=== PATIENT | female | born 1940 | race Caucasian/White ===

== ENCOUNTER 2017-02-01 13:33 | Day surgery (SDC) | payer MEDICARE, OTHER ==
--- NOTE | ~2017-02-01 | EGD ---
EGD REPORT [facility] [address] [place] [address] NAME: MIRANDA HUBER : [birth year] [place]US : [place] [facility] [place] PAT#: [id number] AGE: 76 ADM/REG DATE : 02/01/17 MR#: [id number] REPORT SERV DATE: 02/01/17 DICTATED BY: MARCO ALLEN DATE: 02/01/17 REPORT STATUS : Draft TRANSCRIBED BY: [facility] DATE: 02/01/17 Endoscopy Center Patient Name: Miranda Huber Date of : 1940 Attending MD: TERRI ALLEN MD Procedure Date No Time: 02/01/2017 Procedure: Upper GI endoscopy Indications: Epigastric abdominal pain, Gastro-esophageal reflux disease Referring MD: Praful Parekh MD Medicines: See the Anesthesia note for documentation of the administered medications Complications: No immediate complications. Estimated blood loss: None. Procedure: Pre-Anesthesia Assessment: - ASA Grade Assessment: III - A patient with severe systemic disease. - Prior to the procedure, a History and Physical was performed, and patient medications and allergies were reviewed. The patient's tolerance of previous anesthesia was also reviewed. The risks and benefits of the procedure and the sedation options and risks were discussed with the patient. All questions were answered, and informed consent was obtained. Prior Anticoagulants: The patient has taken aspirin, last dose was 1 day prior to procedure. After reviewing the risks and benefits, the patient was deemed in satisfactory condition to undergo the procedure. After obtaining informed consent, the endoscope was passed under direct vision. Throughout the procedure, the patient's blood pressure, pulse, and oxygen saturations were monitored continuously. The GIF H190 [id number] was introduced through the mouth, and advanced to the second part of duodenum. The upper GI endoscopy was accomplished without difficulty. The patient tolerated the procedure well. Findings: A single 4 mm sessile polyp with was found in the second part of the duodenum. The polyp was removed with a piecemeal technique using a cold biopsy forceps. Resection and retrieval were complete. The exam of the duodenum was otherwise normal. One non-bleeding cratered gastric ulcer with no stigmata of bleeding was found in the gastric antrum. The lesion was 7 mm in largest dimension. Biopsies were taken with a cold forceps for histology. No other significant abnormalities were identified in a careful EGD REPORT [address] [address] NAME: MIRANDA HUBER : [birth year] STATUS : REG [facility]#: [id number] AGE: 76 ADM/REG DATE : 02/01/17 MR#: [id number] REPORT SERV DATE: 02/01/17 DICTATED BY: MARCO ALLEN DATE: 02/01/17 REPORT STATUS : Draft TRANSCRIBED BY: [employer] DATE: 02/01/17 examination of the stomach. The cardia and gastric fundus were normal on retroflexion. A 3 cm hiatus hernia was present. The lumen of the esophagus was mildly dilated. Impression: - A single duodenal polyp. Resected and retrieved. - Gastric ulcer with clean base. Biopsied. - Hiatus hernia. - Dilation in the entire esophagus. Recommendation: - Patient has a contact number available for emergencies. The signs and symptoms of potential delayed complications were discussed with the patient. Return to normal activities tomorrow. Written discharge instructions were provided to the patient. - Regular diet. - Discharge patient to home. - Use Prilosec (omeprazole) 40 mg PO daily indefinitely. - Use Zantac (ranitidine) 300 mg PO daily. - Await pathology results. - Repeat the upper endoscopy in 6 weeks for surveillance. - Return to my office in 3 weeks. Procedure Code(s): --- Professional --- 18667, Esophagogastroduodenoscopy, flexible, transoral; with biopsy, single or multiple Diagnosis Code(s): --- Professional --- K31.7, Polyp of stomach and duodenum K25.9, Gastric ulcer, unspecified as acute or chronic, without hemorrhage or perforation K44.9, Diaphragmatic hernia without obstruction or gangrene K22.8, Other specified diseases of esophagus R10.13, Epigastric pain K21.9, Gastro-esophageal reflux disease without esophagitis CPT copyright 2013 [employer]. All rights reserved. The codes documented in this report are preliminary and upon certified medical records coder review may be revised to meet current compliance requirements. TERRI ALLEN MD 02/01/2017 3:23 PM EGD REPORT [facility] [address] [address] NAME: MIRANDA HUBER : [birth year] [place]US : [place] [facility] [place] PAT#: [id number] AGE: 76 ADM/REG DATE : 02/01/17 MR#: [id number] REPORT SERV DATE: 02/01/17 DICTATED BY: MARCO ALLEN DATE: 02/01/17 REPORT STATUS : Draft TRANSCRIBED BY: [employer] DATE: 02/01/17 This report has been signed electronically. Number of Addenda: 0 Note Initiated On: 02/01/2017 3:02 PM Scope Withdrawal Time 0 hours 0 minutes 0 seconds [address] [place] [address]
[~2017-02-01 13:33] MED LIST: ADVIL PO; ASAB PO; CHOLESTEROL MED; DEMADEX5 MG PO; DRAMAMINE25 MG PO; GLUCPH PO; HCTZ; IMDUR30 PO; LEVOTHYROXIN75 MCG PO; LIPITOR10 PO; MCZ25 PO; METFORMIN; MULTI-VIT HP PO; NEUR300 PO; NORV25 PO; PRINZIDE1 TAB PO; PROZAC; PROZAC40 MG PO; SYNTHROID; TRAZ100 PO; TUMSROLL PO; ULTRAM50 PO; VITAMIN D31000 UNIT PO; WELLXL300 PO; [UNRECOGNIZED DRUG - OTHER]
[2017-03-15] MEDS ORDERED: NATURE-THROI16.25 MG PO (15:57)
[2017-03-15] MEDS ORDERED: PRILOSEC40 MG PO (16:00)
[2017-03-15] MEDS ORDERED: RANITIDINE300 MG PO (16:00)
[2017-03-15] MEDS ORDERED: MULTIPLE VIT PO (16:21)
== END 2017-02-01 23:59 | disposition home or self-care (01) ==
LOC: DMU 13:33
PROVIDERS: Internal Medicine Gastroenterology
PROC: 0DB68ZX Excision of Stomach, Via Natural or Artificial Opening Endoscopic, Diagnostic (ICD-10-PCS; 2017-02-01)
PROC: 0DB98ZX Excision of Duodenum, Via Natural or Artificial Opening Endoscopic, Diagnostic (ICD-10-PCS; principal; 2017-02-01 15:00)
DX: D13.2 Benign neoplasm of duodenum (principal); K21.9 Gastro-esophageal reflux disease without esophagitis; K44.9 Diaphragmatic hernia without obstruction or gangrene; K25.9 Gastric ulcer, unspecified as acute or chronic, without hemorrhage or perforation; K22.8 Other specified diseases of esophagus; I10 Essential (primary) hypertension; E11.9 Type 2 diabetes mellitus without complications; E03.9 Hypothyroidism, unspecified; Z88.5 Allergy status to narcotic agent; F32.9 Major depressive disorder, single episode, unspecified; Z90.710 Acquired absence of both cervix and uterus; Z98.41 Cataract extraction status, right eye; Z98.42 Cataract extraction status, left eye; Z90.49 Acquired absence of other specified parts of digestive tract
CPT/HCPCS: 82962; 88305; 88342

== ENCOUNTER 2017-03-18 11:21 | Day surgery (SDC) | payer MEDICARE, OTHER ==
--- NOTE | ~2017-03-18 | EGD ---
EGD REPORT [facility] [address] [address] NAME: MRIANDA HUBER : [birth year] [place] : [place] [facility] [place]#: [id number] AGE: 76 ADM/REG DATE : 03/18/17 MR#: [id number] REPORT SERV DATE: 03/18/17 DICTATED BY: MARCO ALLEN DATE: 03/18/17 REPORT STATUS : Draft [facility]: [facility] DATE: 03/18/17 Endoscopy Center Patient Name: Miranda Huber Date of : 1940 Attending MD: TERRI ALLEN MD Procedure Date No Time: 03/18/2017 Procedure: Upper GI endoscopy Indications: Dysphagia, Follow-up of chronic gastric ulcer Referring MD: Praful Parekh MD Medicines: See the Anesthesia note for documentation of the administered medications Complications: No immediate complications. Estimated blood loss: None. Procedure: Pre-Anesthesia Assessment: - ASA Grade Assessment: III - A patient with severe systemic disease. - Prior to the procedure, a History and Physical was performed, and patient medications and allergies were reviewed. The patient's tolerance of previous anesthesia was also reviewed. The risks and benefits of the procedure and the sedation options and risks were discussed with the patient. All questions were answered, and informed consent was obtained. Prior Anticoagulants: The patient has taken no previous anticoagulant or antiplatelet agents. After reviewing the risks and benefits, the patient was deemed in satisfactory condition to undergo the procedure. After obtaining informed consent, the endoscope was passed under direct vision. Throughout the procedure, the patient's blood pressure, pulse, and oxygen saturations were monitored continuously. The GIF H190 [id number] was introduced through the mouth, and advanced to the second part of duodenum. The upper GI endoscopy was accomplished without difficulty. The patient tolerated the procedure well. Findings: A single 5 mm sessile polyp with was found in the second part of the duodenum. The polyp was removed with a cold snare. Polyp resection was incomplete, and the resected tissue was partially retrieved. The exam of the duodenum was otherwise normal. One non-bleeding cratered gastric ulcer with no stigmata of bleeding was found in the gastric antrum. The lesion was 4 mm in largest dimension. Biopsies were taken with a cold forceps for histology. The cardia and gastric fundus were normal on retroflexion. The lumen of the esophagus was moderately dilated. EGD REPORT [address] [address] NAME: MIRANDA HUBER : [birth year] STATUS : [place] [facility] [place] PAT#: [id number] AGE: 76 ADM/REG DATE : 03/18/17 MR#: [id number] REPORT SERV DATE: 03/18/17 DICTATED BY: MARCO ALLEN DATE: 03/18/17 REPORT STATUS : Draft TRANSCRIBED BY: [facility] DATE: 03/18/17 Abnormal motility was noted in the esophagus. The cricopharyngeus was abnormal. There is a decrease in motility of the esophageal body. A guidewire was placed and the scope was withdrawn. Dilation was performed with a Savary dilator with no resistance at 51 Fr and no resistance at 57 Fr. Impression: - A single duodenal polyp. Polyp resection was incomplete, and the resected tissue was partially retrieved. - Gastric ulcer with clean base. Biopsied. - Dilation in the entire esophagus. - Esophageal motility disorder. Recommendation: - Patient has a contact number available for emergencies. The signs and symptoms of potential delayed complications were discussed with the patient. Return to normal activities tomorrow. Written discharge instructions were provided to the patient. - Regular diet. - Discharge patient to home. - Continue present medications. - Await pathology results. - Perform routine esophageal manometry. 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 All rights reserved. The codes documented in this report are preliminary and upon assembler fitter review may be revised to meet current compliance requirements. EGD REPORT [facility] [address] [place], [place] [address]. [address] NAME: MIRANDA HUBER : [birth year] STATUS : REG [facility]#: [id number] AGE: 76 ADM/REG DATE : 03/18/17 MR#: [id number] REPORT SERV DATE: 03/18/17 DICTATED BY: MARCO ALLEN DATE: 03/18/17 REPORT STATUS : Draft TRANSCRIBED BY: [employer] DATE: 03/18/17 TERRI ALLEN MD 03/18/2017 1:35 PM This report has been signed electronically. Number of Addenda: 0 Note Initiated On: 03/18/2017 1:08 PM Scope Withdrawal Time 0 hours 0 minutes 0 seconds [address] [place] [address]
[~2017-03-18 11:21] MED LIST changes: +MULTIPLE VIT PO; +NATURE-THROI16.25 MG PO; +PRILOSEC40 MG PO; +RANITIDINE300 MG PO
== END 2017-03-18 23:59 | disposition home or self-care (01) ==
LOC: DMU 11:21
PROVIDERS: Internal Medicine Gastroenterology
PROC: 0D738ZZ Dilation of Lower Esophagus, Via Natural or Artificial Opening Endoscopic (ICD-10-PCS; principal; 2017-03-18 13:30)
PROC: 0DB98ZX Excision of Duodenum, Via Natural or Artificial Opening Endoscopic, Diagnostic (ICD-10-PCS; 2017-03-18 13:30)
PROC: 0DB68ZX Excision of Stomach, Via Natural or Artificial Opening Endoscopic, Diagnostic (ICD-10-PCS; 2017-03-18 13:30)
DX: K25.9 Gastric ulcer, unspecified as acute or chronic, without hemorrhage or perforation (principal); K22.4 Dyskinesia of esophagus; K31.7 Polyp of stomach and duodenum; K22.8 Other specified diseases of esophagus; I10 Essential (primary) hypertension; E11.9 Type 2 diabetes mellitus without complications; E03.9 Hypothyroidism, unspecified; Z88.5 Allergy status to narcotic agent; Z90.710 Acquired absence of both cervix and uterus; Z90.49 Acquired absence of other specified parts of digestive tract; Z98.41 Cataract extraction status, right eye; Z98.42 Cataract extraction status, left eye; Z96.1 Presence of intraocular lens; Z98.890 Other specified postprocedural states
CPT/HCPCS: 82962; 88305; 88342